=== PATIENT | female | born 1990 | race Caucasian/White ===

== ENCOUNTER 2022-06-19 16:19 | Emergency (ER) | payer OTHER ==
[~2022-06-19 16:19] MED LIST: IBU800 MG PO; MACROBID 100 M100 MG PO; ZOFRAN4 MG PO
[2022-06-19] MEDS ORDERED: CYCLOBENZAPRINE10 MG PO (20:33)
[2022-06-19] MEDS ORDERED: IBUPROFEN600 MG PO (20:33)
== END 2022-06-19 21:49 | disposition home or self-care (01) ==
LOC: ER1 16:19
DX: S16.1XXA Strain of muscle, fascia and tendon at neck level, initial encounter (principal); R51.9 Headache, unspecified; I10 Essential (primary) hypertension; F17.200 Nicotine dependence, unspecified, uncomplicated; X58.XXXA Exposure to other specified factors, initial encounter
CPT/HCPCS: 70450; 72125; 96372; 99284; J1100; J2270